=== PATIENT | female | born 1995 | race Hispanic/Latino ===

== ENCOUNTER → 2023-01-10 | Outpatient (CLI) | payer BC ==
[~2023-01-10] MED LIST: IOHEXOL-350 50ML VIAL IV ONE
== END | disposition home or self-care (01) ==
LOC: RAH 07:55
PROVIDERS: ATTEND Obstetrics & Gynecology
DX: N92.6 Irregular menstruation, unspecified (principal); Z79.899 Other long term (current) drug therapy
CPT/HCPCS: 74740; 84702; 36415; 58340; Q9967